=== PATIENT | male | born 1975 | race Caucasian/White ===

== ENCOUNTER 2017-12-16 05:17 | Inpatient (IN) | payer OTHER ==
[2017-12-08 13:21] LABS: BASOPHILS % (AUTO) 0.3 % (0.0-2.0); EOSINOPHILS % (AUTO) 6.1 % (1.0-6.0); HEMATOCRIT 50.6 % (41-53); HEMOGLOBIN 17.5 g/dL (13.5-17.5); LYMPHOCYTES # (AUTO) 1.7 K/uL (1.0-4.8); LYMPHOCYTES % (AUTO) 23.6 % (22.0-44.0); MEAN CORPUSCULAR HEMOGLOBIN 31.3 pg (26.0-34.0); MEAN CORPUSCULAR HGB CONC 34.6 G/dL (31.0-37.0); MEAN CORPUSCULAR VOLUME 91 fL (80-100); MONOCYTES # (AUTO) 0.4 K/uL (0.1-1.0); MONOCYTES % (AUTO) 5.8 % (2.0-9.0); NEUTROPHILS # (AUTO) 4.6 K/uL (1.8-7.7); NEUTROPHILS % (AUTO) 64.2 % (40.0-70.0); PLATELET COUNT (AUTO) 233 K/uL (150-450); RED BLOOD CELL COUNT(AUTO) 5.59 MIL/uL (4.50-5.90); RED CELL DISTRIBUTION WIDTH 12.5 % (11.5-14.5)
[2017-12-08 13:32] LABS: PROTHROMBIN TIME 10.6 SEC (9.4-11.6)
[2017-12-08 13:37] LABS: ANION GAP 6 mmol/L (8-16); CALCIUM, TOTAL 8.8 mg/dL (8.8-10.5); CARBON DIOXIDE 29 mmol/L (22-29); CHLORIDE 99 mmol/L (98-107); CREATININE 0.98 mg/dL (0.60-1.30); GLOMERULAR FILTR. RATE CALC > 60 mL/min (>60); GLUCOSE,RANDOM 103 mg/dL (70-110); SODIUM SERUM 134 mmol/L (136-145); UREA NITROGEN, BLOOD 16 mg/dL (7-18)
[2017-12-08 13:43] LABS: ALANINE AMINOTRANSFERASE 66 U/L (12-78); ALBUMIN 3.9 g/dL (3.4-5.0); ALKALINE PHOSPHATASE 47 U/L (46-116); ASPARTATE AMINOTRANSFERASE 29 U/L (15-37); BILIRUBIN,TOTAL 0.5 mg/dL (0.1-1.0); TOTAL PROTEIN, SERUM 7.5 g/dL (6.4-8.2)
[~2017-12-16] VITALS: Ht 182.9 cm; Wt 95.5 kg
[~2017-12-16 05:17] MED LIST: CeFAZolin 2 GM/DEXTROSE 50 ML IV ONE; HYDR-4069 PO; RINGERS SOLUTION,LACTATED 1,000 ML IV ONE
[2017-12-16] MEDS ORDERED: RINGERS SOLUTION,LACTATED 1,000 ML IV ONE (05:30)
[2017-12-16] MEDS ORDERED: BACITRACIN 28.4 GM OINTMENT TP PRN (06:30)
[2017-12-16] MEDS ORDERED: DEXAMETHASONE SOD PHOS 4 MG/ML VIAL IVP PRN (06:30)
[2017-12-16] MEDS ORDERED: MAG HYDROX/AL HYDROX/SIMETH 30 ML SUSP UDCUP PO PRN (06:30)
[2017-12-16] MEDS ORDERED: DiphenhydrAMINE HCL 50 MG/ML VIAL IVP PRN (06:30)
[2017-12-16] MEDS ORDERED: ZOLPIDEM TARTRATE 10 MG TABLET PO PRN (06:30)
[2017-12-16] MEDS ORDERED: CeFAZolin 2 GM/DEXTROSE 50 ML IV ONE (06:45)
[2017-12-16] MEDS ORDERED: CeFAZolin 1 GM/DEXTROSE 50 ML IV ONE (07:00)
[2017-12-16] MEDS ORDERED: BISACODYL 5 MG EC TABLET PO ONE (07:15)
[2017-12-16] MEDS ORDERED: HYDROmorphone 2 MG/ML SYRINGE IVP PRN (07:15)
[2017-12-16] MEDS ORDERED: MEPERIDINE-PF 25 MG/ML SYRINGE IVP PRN (07:15)
[2017-12-16] MEDS ORDERED: ONDANSETRON HCL 4 MG/2 ML VIAL IM PRN (07:15)
[2017-12-16] MEDS: ACETAMINOPHEN 1000 MG/ISO-OSM 100 ML IV SCH ×3 (07:15→18:53)
[2017-12-16] MEDS ORDERED: OXYGEN THERAPY IH SCH (08:00)
[2017-12-16] MEDS ORDERED: FentaNYL CITRATE-PF 100 MCG/2 ML VIAL ONE (08:11)
[2017-12-16] MEDS: FentaNYL CITRATE-PF 100 MCG/2 ML VIAL IVP PRN ×2 (08:18→08:27)
[2017-12-16] MEDS ORDERED: HYDROmorphone 2 MG/ML SYRINGE ONE (08:33)
[2017-12-16] MEDS: DOCUSATE SODIUM 100 MG CAPSULE PO SCH ×2 (09:00→20:08)
[2017-12-16] MEDS: CYCLOBENZAPRINE HCL 10 MG TABLET PO SCH ×3 (09:00→20:08)
[2017-12-16] MEDS: HYDROmorphone 2 MG/ML SYRINGE IVP PRN ×5 (10:42→22:37)
[2017-12-16 11:47] VITALS: BP 130/75
[2017-12-16] MEDS ORDERED: INFLUENZA VIRUS VACCINE QVS 2017-18 (3YR+)/PF 60 MCG/0.5 ML SYRINGE IM ONE (13:45)
[2017-12-16 16:02] VITALS: BP 133/74
[2017-12-16 20:15] VITALS: BP 136/77
[2017-12-16 23:20] VITALS: BP 125/69
[2017-12-17] MEDS: ACETAMINOPHEN 1000 MG/ISO-OSM 100 ML IV SCH ×2 (01:12→06:59)
[2017-12-17 04:09] VITALS: BP 120/65
[2017-12-17] MEDS ORDERED: GLYCOPYRROLATE 0.2 MG/ML VIAL IM ONE (05:21)
[2017-12-17] MEDS ORDERED: PROPOFOL 1% 20 ML VIAL IVP ONE (05:21)
[2017-12-17] MEDS ORDERED: LIDOCAINE HCL/PF 2% 5 ML VIAL IM ONE (05:21)
[2017-12-17] MEDS ORDERED: LIDOCAINE HCL/PF 2% 5 ML SYRINGE IVP ONE (05:21)
[2017-12-17] MEDS ORDERED: ONDANSETRON HCL 4 MG/2 ML VIAL IVP ONE (05:21)
[2017-12-17] MEDS ORDERED: METOCLOPRAMIDE HCL 5 MG/ML 2 ML VIAL IVP ONE (05:21)
[2017-12-17] MEDS ORDERED: DEXAMETHASONE SOD PHOS 4 MG/ML VIAL IVP ONE (05:21)
[2017-12-17] MEDS ORDERED: ROCURONIUM BROMIDE 10 MG/ML 5 ML VIAL IVP ONE (05:21)
[2017-12-17] MEDS ORDERED: NEOSTIGMINE METHYLSULFATE 1 MG/ML 10 ML VIAL IVP ONE (05:21)
[2017-12-17] MEDS ORDERED: MIDAZOLAM HCL 2 MG/2 ML VIAL IVP ONE (05:25)
[2017-12-17] MEDS ORDERED: KETAMINE HCL 50 MG/ML 10 ML VIAL IVP ONE (05:25)
[2017-12-17] MEDS ORDERED: FentaNYL CITRATE-PF 250 MCG/5 ML VIAL IVP ONE (05:25)
[2017-12-17] MEDS: HYDROmorphone 2 MG/ML SYRINGE IVP PRN ×3 (05:54→11:25)
[2017-12-17 08:14] VITALS: BP 120/68
[2017-12-17] MEDS: DOCUSATE SODIUM 100 MG CAPSULE PO SCH (08:39)
[2017-12-17] MEDS: CYCLOBENZAPRINE HCL 10 MG TABLET PO SCH (08:39)
[2017-12-17 11:54] VITALS: BP 133/70
== END 2017-12-17 13:56 | disposition home or self-care (01) | DRG 473 ==
LOC: 4E 05:17
PROVIDERS: ADMIT Orthopaedic Surgery Orthopaedic Surgery of the Spine; ATTEND Orthopaedic Surgery Orthopaedic Surgery of the Spine
PROC: 0RB30ZZ Excision of Cervical Vertebral Disc, Open Approach (ICD-10-PCS; 2017-12-16)
PROC: 0RG10A0 Fusion of Cervical Vertebral Joint with Interbody Fusion Device, Anterior Approach, Anterior Column, Open Approach (ICD-10-PCS; principal; 2017-12-16 06:30)
DX: M48.02 Spinal stenosis, cervical region (principal)
CPT/HCPCS: 87081; 93005; 97161; C1713; J0131; J0690; J1100; J1170; J2250; J2405; J2704; J2765; J3010; J3490; J7120